=== PATIENT | male | born 1975 | race Caucasian/White ===

== ENCOUNTER → 2022-12-19 15:45 | Outpatient (CLI) | payer OTHER, SELFPAY ==
--- NOTE | 2022-12-19 15:47 | DI.CT.S_ITS ---
PROCEDURE: CT ABDOMEN PELVIS WO/W CON INDICATIONS: Asymptomatic microscopic hematuria TECHNIQUE: After the administration of oral contrast, 5 mm thick sections acquired from the diaphragms to the iliac crests. After the administration of intravenous contrast, 5 mm thick sections acquired from the diaphragms to the symphysis. 5 mm thick coronal and sagittal reformats were acquired. For radiation dose reduction, the following was used: automated exposure control, adjustment of mA and/or kV according to patient size. COMPARISON: None. FINDINGS: Image quality: Excellent. KIDNEYS/URETERS/BLADDER: Noncontrast images demonstrate no nephroureteral or bladder calculi. The kidneys have no abnormal enhancement on arterial or venous phase imaging. No solid or cystic masses. Delayed images demonstrate no nephroureteral filling defects. The bladder has no wall thickening, polyp, or mass. LIVER/BILIARY: The liver has no mass or intrahepatic biliary ductal dilatation. PANCREAS: The pancreas has no mass or ductal dilatation. There is no surrounding inflammation. SPLEEN: Normal size. There are no masses. ADRENALS: No hypertrophy or nodules. AORTA/VASCULAR: Normal caliber. RETROPERITONEUM: No retroperitoneal mass or adenopathy. BOWEL/MESENTERY: The distal esophagus and stomach are normal. The small bowel has a normal caliber and appearance. The terminal ileum is normal. The large bowel has a normal caliber and appearance. FREE FLUID OR AIR: None. LYMPH NODES: No adenopathy in the abdomen or pelvis. PELVIC ORGANS: No pelvic masses. BONES: Degenerative disc disease at L5-S1. ABDOMINAL WALL: Fat containing left inguinal hernia. LUNG BASES: The lung bases are clear. IMPRESSION No nephroureteral calculi. No abnormal enhancement of the kidneys. No solid renal masses. No filling defects on delayed phase images. Dictated by: Mitch Raman M.D. on 12/19/2022 at 17:01 Approved by: Mitch Raman M.D. on 12/19/2022 at 17:05
== END ==
PROVIDERS: Referring Provider Urology; Visit Provider Urology
DX: R31.21 Asymptomatic microscopic hematuria (principal)
CPT/HCPCS: 74178; Q9967

== ENCOUNTER 2023-01-24 09:01 | Day surgery (SDC) | payer OTHER, SELFPAY ==
[2023-01-18 14:56] VITALS: BMI 23.7
[2023-01-24] VITALS (7 sets, daily range): BP systolic 92–140; BP diastolic 65–109; PULSE 60–96; RESP 10–16; TEMP 36.3–36.7; O2SAT 93–97; BMI 23.7
--- NOTE | 2023-01-24 | PATH_ITS ---
[facility] Accession Number: [id number] No. of containers..01 Tissue . 01 Material submitted: . bladder - PAPILLARY BLADDER LESION . 01 Diagnosis: Urinary Bladder, Biopsy: Primarily minute fragments of stromal tissue. Scant partial thickness urothelium present. Negative for dysplasia and neoplasia. See comment. MRV 02/02/2023 1722 Local . 01 Comment: The biopsy is minute and includes scant partial thickness urothelium without significant atypia. The scantiness of the urothelium in this specimen may be due to embedding en face or denudation. . 01 Electronically signed: . Martita Zaragoza MD, Pathologist NPI- [id number] . 01 Gross description: . The specimen is received in formalin labeled with the patient's name, , and papillary bladder lesion, and consists of two small dumont soft tissue fragments measuring 0.2 cm each in greatest dimension. Submitted intact in cassette A1. ([id number]) /RON 01/25/2023 1005 Local . 01 Pathologist provided ICD-10: D49.4 . 01 CPT . 095558 Specimen Comment: A courtesy copy of this report has been sent to [phone] Performed at: 01 [facility] [address] [place] [address] [address] [facility], [place], [place] [id number] MD Jerome Dillon MD Phone: [phone]
[2023-01-24] MEDS: ACETAMINOPHEN 325 MG TABLET 975 MG PO (09:11)
[2023-01-24] MEDS: LACTATED RINGERS 1,000 ML 21 ML IV (09:12)
--- NOTE | 2023-01-24 09:52 | PM.PREOP ---
Pre-operative Note COVID-19 COVID-19 status: Not tested Interval Note History & Physical reviewed/Exam performed by Physician: Yes Changes to H&P: No
[2023-01-24] MEDS: CEFAZOLIN 2 GM/100 ML PREMIX 100 ML IV (10:25)
--- NOTE | 2023-01-24 10:42 | SUR.OPER ---
Lithotomy on padded OR bed, head on pillow, left arm secured on padded arm boards at <90 degrees abduction. Right arm padded with gel pad at tucked at side, Legs secured in padded yellow fins stirrups.
--- NOTE | 2023-01-24 10:50 | P.OP_ITS ---
Procedure & Clinicians Procedure: Cystoscopy with Transurethral resection of bladder tumor small and fulguration. Same procedure as scheduled: Yes Indications: This very pleasant 47-year-old male presented with asymptomatic microscopic hematuria through workup was found to have a small papillary bladder lesion just lateral and cephalad to the left ureteral orifice. He presents this time for resection of this and fulguration of the margin. Surgeon: Robert Long Click Yes if Unassisted: Yes Anesthesia Type: General Operative Notes Findings: Findings: Urethral meatus is normal urethra is normal with normal mucosa. Sphincter as well coapted prostate shows minimal obstructive character. Ureteral orifices in normal position with clear efflux. 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 This is the only lesion within the bladder in its removed in its entirety. Closure Type: not applicable Specimen(s): other (Papillary bladder lesion) Prosthetic devices, grafts, tissues, transplants, or devices: None Estimated Blood Loss (mL): 5 Blood products transfused: none Procedure in detail: Procedure in detail: After informed consent was obtained, the patient was identified brought to the operating room where he was placed in a supine position on the table and had anesthesia induced to maintain. Ensuring an adequate level of anesthesia the patient was transitioned to the lithotomy position where he was prepped, draped, prepared for Transurethral procedure. After prepping, draping, ensuring an adequate level of anesthesia and time-out 22 Turkish cystoscope was passed through the urethra prostate in the bladder were cystoscopy was performed. The lesion was once again identified and biopsy forceps were used to resect the lesion. The Bugbee electrode was then used to fulgurate and cauterize the base and margin. The bladder was then filled drained filled and drained hemostasis remained good bladder was drained scope was removed and the patient was awakened having tolerated the procedure well he was transferred to the postanesthesia care unit for recovery there were no complications. Complications: none Post-operative Condition: stable Disposition: PACU Plan for aftercare: Patient will be discharged to home when fully awake and alert to follow up in my office in approximately 10-14 days.
[2023-01-24] MEDS: PHENAZOPYRIDINE 100 MG TABLET 200 MG PO (11:11)
== END 2023-01-24 11:42 | disposition home or self-care (01) ==
PROVIDERS: Referring Provider Urology; Visit Provider Urology
PROC: 0TBB8ZZ Excision of Bladder, Via Natural or Artificial Opening Endoscopic (ICD-10-PCS; CPT 52234; principal; 2023-01-24 10:15)
DX: D49.4 Neoplasm of unspecified behavior of bladder (principal)
CPT/HCPCS: 52234; J0690; J1100; J1885; J2250; J2405; J2704; J3010

== ENCOUNTER 2023-03-24 10:54 | Day surgery (SDC) | payer OTHER, SELFPAY ==
[2023-03-16 14:10] VITALS: BMI 24.4
[2023-03-24 11:15] VITALS: BP 145/95; PULSE 97; RESP 16; TEMP 36.2; O2SAT 97; BMI 24.4
[2023-03-24] MEDS: LACTATED RINGERS 1,000 ML 42 ML IV (11:21)
[2023-03-24] MEDS: ACETAMINOPHEN 325 MG TABLET 975 MG PO (11:23)
[2023-03-24] MEDS: CEFAZOLIN 2 GM/100 ML PREMIX 100 ML IV (13:11)
--- NOTE | 2023-03-24 13:30 | SUR.OPER ---
Supine on padded OR bed, head on pillow, arms padded and tucked at sides, legs uncrossed, safety belt at thigh, tape over blanket over lower legs .
[2023-03-24] MEDS: BUPIVACAINE 0.25% (PF) VIAL 30 ML INJ (13:33)
[2023-03-24 14:30] VITALS: BP 122/96; PULSE 66; RESP 16; TEMP 36.8; O2SAT 98
[2023-03-24 14:40] VITALS: BP 146/99; PULSE 92; RESP 16; TEMP 36.2
--- NOTE | 2023-03-24 14:41 | PM.OP.1 ---
Operative Date/Time/Diagnoses Date of procedure: 03/24/23 Time of procedure: 14:41 Pre-op diagnosis: Left inguinal hernia Post-op diagnosis: same Procedure & Clinicians Procedure: Laparoscopic transabdominal preperitoneal repair of left inguinal hernia Same procedure as scheduled: Yes Indications: Symptomatic reducible left inguinal hernia Surgeon: Toño Harris Click Yes if Unassisted: Yes Anesthesia Type: General Operative Notes Findings: Direct left inguinal hernia. No right inguinal hernia Specimen(s): none sent Estimated Blood Loss (mL): 20 Procedure in detail: The patient was brought to the operating room and placed supine on the table. Bilateral sequential compression devices were applied. General anesthesia was induced and they were intubated with an endotracheal tube. A melendrez cath was placed in sterile fashion. They received 2 g Ancef prior to skin incision. They were prepped and draped in sterile fashion. A time out was performed to ensure the correct patient, procedure and necessary equipment within the operating room. The skin was infiltrated with 0.25% bupivicaine. A 1 cm supra umbilical midline incision was made. The fascia was sharply incised and the abdomen entered traumatically. A 10mm balloon port was placed and pneumoperitoneum was established at 15mm Hg. Inspection of the abdomen demonstrated no evidence of injury upon entry. Two 5 mm ports were then placed under direct visualization in the right and left lower quadrant lateral to the rectus muscle. A left direct inguinal hernia was observe no right-sided defect. There were adhesions between the sigmoid colon and the left pelvic side wall which were carefully dissected. Starting on the left side the peritoneum 4 cm superior to the deep inguinal ring between the medial umbilical ligament and the anterior superior iliac spine was incised. The medial preperitoneal dissection was carried out into the space of Retzius bluntly, the bladder was swept inferiorly, the pubis and Giovany's ligament were identified. Next attention was turned towards the lateral aspect of the peritoneal flap. The preperitoneal fat with the testicular vessels was carefully dissected off the inferior peritoneal flap. The cord was carefully inspected there was no cord lipoma or indirect hernia. The attachements to the direct hernia sac were divided and the direct defect was reduced. A large Bard 3D Max mesh was then placed into the abdomen and positioned such that the myopectineal orifice was completely covered with good overlap on all sides. The peritoneal flap was then repositioned back to its original position and a running V lock suture was used to close the peritoneum such that no bowel could herniate into the preperitoneal space. The area was examined for hemostasis. The 5mm trocars were removed under direct visualization and pneumoperitoneum was deflated through the umbilical trocar, The fascia at the umbilicus was closed with 0-Vicryl in figure of 8 fashion, skin closed with 4-0 Monocyl followed by Dermabond. The sponge and instrument count at the end of the case was correct. Both testicles were entirely within the scrotum at the end of the case. The patient emerged from anesthsia was extubated and transferred to recovery in stable condition. Complications: none Post-operative Condition: stable Disposition: same day surgery
[2023-03-24 14:44] VITALS: BP 122/70; PULSE 65; RESP 16; O2SAT 95
[2023-03-24 14:50] VITALS: BP 155/98; PULSE 69; RESP 16; TEMP 36.2; O2SAT 98
[2023-03-24] MEDS: OXYCODONE IR 5 MG TABLET PO ×2 (15:04→15:51)
[2023-03-24 15:45] VITALS: BP 138/67; PULSE 88; RESP 16; TEMP 36.2; O2SAT 97
== END 2023-03-24 15:51 | disposition home or self-care (01) ==
PROVIDERS: PCP General Practice; Referring Provider Surgery; Visit Provider Surgery
PROC: 0YQ64ZZ Repair Left Inguinal Region, Percutaneous Endoscopic Approach (ICD-10-PCS; CPT 49650; principal; 2023-03-24 12:30)
DX: K40.90 Unilateral inguinal hernia, without obstruction or gangrene, not specified as recurrent (principal)
CPT/HCPCS: 49650; J0330; J0690; J1100; J1170; J1200; J1885; J2405; J2704; J3010

== ENCOUNTER → 2024-09-23 06:56 | Outpatient (CLI) | payer OTHER, SELFPAY ==
--- NOTE | 2024-09-23 | DI.CT.S_ITS ---
PROCEDURE: CT ABDOMEN PELVIS W CON INDICATIONS: ABDOMINAL PAIN TECHNIQUE: After the administration of intravenous contrast, axial sections acquired from the lung bases to the pubic symphysis. Coronal and sagittal reformats were performed. For radiation dose reduction, the following was used: automated exposure control, adjustment of mA and/or kV according to patient size. COMPARISON: [facility], CT, CT ABDOMEN PELVIS WO/W CON, 12/19/2022, 15:50. FINDINGS: Image quality: Diagnostic Lower chest: Unremarkable lung bases Normal heart size Liver: Unremarkable Gallbladder and biliary system: No significant inflammation or radiopaque gallstones. No biliary ductal dilation Pancreas: No ductal dilation Spleen: Nonenlarged Adrenals: No discrete nodules Kidneys: No solid renal mass or hydronephrosis. Vessels and lymph nodes: The main portal vein is patent. No abdominal aortic aneurysm. No lymphadenopathy identified by size criteria. Bowel and peritoneum: Moderate to large rectal stool ball and colonic fecal loading. Colonic diverticula, without focal diverticular inflammation. No small bowel obstruction. No drainable abscess or ascites. Body wall: Unremarkable Pelvis: Bladder is unremarkable. Heterogeneous prostate enhancement, nonspecific and not well assessed on this study Bones: Mild degenerative osseous changes. No aggressive appearing osseous abnormality IMPRESSION: No acute abdominal pelvic abnormality. Moderate to large colorectal fecal loading. No obstruction. Other findings above. Dictated by: Guanaco Perez M.D. on 09/23/2024 at 14:53 Approved by: Guanaco Perez M.D. on 09/23/2024 at 14:57
--- NOTE | 2024-09-23 06:58 | DI.ECHO.S_ITS ---
[facility] +---------+ [facility] : : [id number] : : [place] : : [id number] : : Phone: [phone] Echocardiogram Report + + :Name: GEORGIA JUDGE Study Date: 09/23/2024 Height: 72 in : :Hospital ReadingLocation: Weight: 185 lb : : Gender: Male BSA: 2.1 m2 : :: 1975 Age: 48 yrs BP: 124/81 mmHg: :Reason For Study: PAIN, RAPID HEART RATE : :Ordering Physician: HENRY, : :MAILE Performed By: Shikha Nino : :Referring: MAILE FIGUEROA : + + Interpretation Summary 1. The left ventricular contractility is normal. Estimate ejection fraction is greater than 55% with no segmental wall motion abnormalities. No LVH. Normal diastolic function. 2. The right ventricular contractility is normal. 3. All cardiac chambers are of normal size. 4. Mild aortic insufficiency. 5. Trace to mild pulmonic insufficiency. 6. No obvious intracardiac shunts. 7. No obvious intracardiac masses nor thrombi. 8. No hemodynamically significant pericardial effusion. 9. Low right-sided filling pressures. Conclusion: Normal biventricular function with mild valvular insufficiencies. Procedure: A two-dimensional transthoracic echocardiogram with color flow and Doppler was performed. The study quality was technically adequate. There is no prior echocardiogram noted for this patient. The patient was in sinus rhythm with heart rates between 63-69 bpm during the exam. Left Ventricle: The left ventricle is normal in size and wall thickness. The ejection fraction is estimated to be 55-60%. Diastolic parameters suggest probable normal left ventricular diastolic function and normal filling pressures. Right Ventricle: The right ventricle is normal in size and function. Atria: The left atrial size is normal. Right atrial size is normal. There is no Doppler evidence for an interatrial shunt. Mitral Valve: The mitral valve leaflets appear to open well. There is no mitral regurgitation noted. Aortic Valve: The aortic valve is trileaflet. The aortic valve opens well. There is no aortic valve stenosis. There is mild aortic regurgitation. Tricuspid Valve: The tricuspid valve leaflets are thin and pliable. There is trace tricuspid regurgitation. Pulmonary artery pressures cannot be estimated because of the lack of a measurable TR jet velocity but the IVC suggests a CVP of around 3 mmHg. Pulmonic Valve: The pulmonic valve leaflets are thin and pliable; valve motion is normal. There is mild pulmonic regurgitation. Great Vessels: The aortic root is normal size. The dimensions of the ascending aorta are normal. The IVC is of normal diameter and collapses greater than 50% with a sniff. This suggests a low right atrial pressure of 3 mm Hg. Pericardium/ Pleura There is no pericardial effusion. There is no pleural effusion. MMode/2D Measurements & Calculations LVIDd: 4.4 cm LVOT diam: 2.2 cm LVIDs: 2.9 cm Ao root diam: 3.2 cm FS: 32.6 % asc Aorta Diam: 2.9 cm IVSd: 0.64 cm Ao Arch Diam (Prox Trans): 2.8 cm LVPWd: 0.72 cm LV rodríguez. diameter/BSA (cm/m^2): 2.1 LV sys. diameter/BSA (cm/m^2): 1.4 LA A2 area: 14.7 cm2 RA long axis: 4.8 cm LA A4 area: 10.6 cm2 RA area: 11.9 cm2 LA length (vol): 3.8 cm RA vol: 25.3 ml LA vol: 34.6 ml RA : 12.3 ml/m2 LA vol index: 16.8 ml/m2 IVC diam: 1.0 cm RVD1 (basal): 3.5 cm RVD2 (mid): 3.4 cm TAPSE: 1.7 cm Doppler Measurements & Calculations Ao V2 max: 119.0 cm/sec LVOT Max Dick: 108.3 cm/sec Ao V2 mean: 82.3 cm/sec LV V1 max P.7 mmHg Ao max P.7 mmHg LV V1 VTI: 20.4 cm Ao mean P.0 mmHg RUDOLPH(I,D): 3.3 cm2 Ao V2 VTI: 23.5 cm RUDOLPH(V,D): 3.4 cm2 sev ratio: 0.87 RUDOLPH indexed to BSA (cm^2/m^2): 1.6 MV E max dick: 62.3 cm/sec PA V2 max: 92.5 cm/sec MV A max dick: 44.8 cm/sec PA V2 mean: 61.9 cm/sec MV E/A: 1.4 PA mean P.7 mmHg Med Peak E' Dick: 10.2 cm/sec PA pr(Accel): 19.3 mmHg E/E' med: 6.1 Lat Peak E' Dick: 14.6 cm/sec E/E' lat: 4.3 E/e' average: 5.2 MV dec time: 0.18 sec SV(LVOT): 76.9 ml Reading Physician:XOCHILT
== END ==
PROVIDERS: PCP General Practice; Referring Provider Nurse Anesthetist, Certified Registered; Visit Provider Nurse Anesthetist, Certified Registered
DX: R10.9 Unspecified abdominal pain (principal); R00.2 Palpitations; R68.81 Early satiety
CPT/HCPCS: 74177; 93246; 93306; Q9967

== ENCOUNTER → 2024-09-23 15:03 | Outpatient (CLI) | payer OTHER, SELFPAY | LOC: CAR 15:03 | PROVIDERS: PCP General Practice | DX: R00.2 Palpitations (principal) | CPT/HCPCS: 93246 ==